=== PATIENT | male | born 1990 | race Caucasian/White ===

== ENCOUNTER → 2021-01-11 | Outpatient (CLI) | payer OTHER ==
--- NOTE | 2021-01-11 09:01 | MR ---
EXAMINATION TYPE: MR lumbar spine wo con DATE OF EXAM: 01/11/2021 COMPARISON: NONE HISTORY: Lumbar radiculopathy. Low back pain for 8 months into left buttocks for patient TECHNIQUE: Multiplanar, multisequence imaging of the lumbar spine is performed without IV contrast. FINDINGS: Sagittal images of the lumbar spine show vertebral body heights to appear satisfactory. Pro minent Schmorl node anterior superior L4 endplate. Very subtle grade 1 retrolisthesis L3 on L4, L4 an d L5, and L5 and S1 along posterior vertebral body margins. Disc desiccation L3-L4 through the L5-S1 levels. [id number] disc space narrowing at these levels. The conus medullaris is normal in pos ition and signal ending mid L1 level. Some heterogeneous Modic type III endplate changes posterior L4 -L5 level. Axial images show T12-L1, L1-L2, and L2-L3 levels all to appear within normal limits. Axial images at the L3-L4 level show posterior annular tear. Mild broad disc bulge without significan t spinal canal effacement. The bilateral neural foramina are patent. Axial images at L4-L5 level show mild/moderate facet arthropathy bilaterally. There is focal right pa racentral disc protrusion minimally effacing anterior thecal sac. Patent bilateral neural foramina. Axial images at L5-S1 level show focal left paracentral disc protrusion or spinal canal is preserved that there is some increased epidural fat at this level. There is mild facet arthropathy bilaterally. Patent bilateral neural foramina. Partial visualization of mild to moderately distended bladder. Paraspinal muscle bulk is maintained. IMPRESSION: Multilevel spondylolisthesis and degenerative changes in the mid to lower lumbar spine as detailed above.
== END | disposition home or self-care (01) ==
LOC: RADMRIMAIN 08:01
PROVIDERS: ATTEND Family Medicine
DX: M43.16 Spondylolisthesis, lumbar region (principal); M54.16 Radiculopathy, lumbar region
CPT/HCPCS: 72148

== ENCOUNTER → 2021-09-28 | Outpatient (CLI) | payer OTHER ==
--- NOTE | 2021-09-28 13:42 | MR ---
EXAMINATION TYPE: MR lumbar spine wo con DATE OF EXAM: 09/28/2021 COMPARISON: 01/11/2021 HISTORY: Lower back pain with BLE radiculopathy x 1 month. TECHNIQUE: Multiplanar, multisequence images of the lumbar spine were acquired without IV contrast. Findings: The lumbar vertebral segments are normal in height and alignment and there is no fracture or subluxat ion. There is mild degenerative disease at L3-4, L4-5 and L5-S1 levels where there is loss of signal intensity and mild circumferential disc bulge. There is a mild broad-based disc protrusion at the L4- 5 disc moderate on the left mildly compromising the left lateral recess and neural foramina There is no spinal stenosis. There is moderate facet arthropathy at the L4-5 level and mild facet arthropathy at the L3-4 and L5-S 1 levels. The paraspinal soft tissues are unremarkable. Comparison to the prior study reveals no significant interval change. IMPRESSION: 1. Mild degenerative disease from L3 through S1. 2. Left lateral mild broad-based disc protrusion at the L4-5 level mildly compromising the left later al recess and neural foramina. 3. No spinal stenosis. 4. No lumbar spine fracture or malalignment. 5. Facet arthropathy from L3 through S1 as described above.
== END | disposition home or self-care (01) ==
LOC: RADMRIMAIN 12:41
PROVIDERS: ATTEND Physical Medicine & Rehabilitation
DX: M51.36 Other intervertebral disc degeneration, lumbar region (principal); M51.26 Other intervertebral disc displacement, lumbar region; M47.819 Spondylosis without myelopathy or radiculopathy, site unspecified
CPT/HCPCS: 72148

== ENCOUNTER 2022-01-09 11:08 | Emergency (ER) | payer OTHER ==
[2022-01-09 11:15] VITALS: TEMP 98.2
--- NOTE | 2022-01-09 11:26 | ED ---
Head Injury HPI - General Chief complaint: Head Injury Stated complaint: head injury Source: patient, RN notes reviewed Mode of arrival: ambulatory Limitations: no limitations - History of Present Illness Initial comments: Patient is a 31-year-old male presents the emergency room at the [facility] [place] after head trauma at work earlier today. He reports that he was hit with Gisselle back in the side of his head and afterwards he has developed a headache, occasional blurred vision that is slowly improving along with nausea without emesis. He is also slightly fatigued. He has a small laceration to the temporal region that does not require closure. There is no hematoma. He denies any loss of consciousness, focal neurological weakness, chest pain, shortness of breath, fevers or chills. He reports that his tetanus shot is up-to-date. He does not have any significant past medical history and does not take any medications on a regular basis. - Related Data Previous Rx's Medication Instructions Recorded Ondansetron Odt [Zofran Odt] 4 mg PO Q8HR PRN 7 Days #21 tab 01/09/22 Allergies/Adverse reactions: Allergies Allergy/AdvReac Type Severity Reaction Status Date / Time No Known Allergies Allergy Verified 01/09/22 11:15 Review of Systems ROS Statement: Those systems with pertinent positive or pertinent negative responses have been documented in the HPI. ROS Other: All systems not noted in ROS Statement are negative. Past Medical History History of Any Multi-Drug Resistant Organisms: None Reported Past Surgical History: Orthopedic Surgery, Tonsillectomy Past Psychological History: No Psychological Hx Reported Smoking Status: Never smoker Past Alcohol Use History: Occasional Past Drug Use History: None Reported General Exam Limitations: no limitations General appearance: alert, in no apparent distress Head exam: Present: normocephalic Expanded Head exam: Present: laceration (small laceration left temopral region, minimal depth without drainage or eccyhmosis) Eye exam: Present: normal appearance, PERRL, EOMI. Absent: scleral icterus, conjunctival injection, nystagmus, periorbital swelling ENT exam: Present: normal exam, mucous membranes moist Neck exam: Present: normal inspection. Absent: tenderness, meningismus, lymph adenopathy Respiratory exam: Present: normal lung sounds bilaterally. Absent: respiratory distress, wheezes, rales, rhonchi, stridor Cardiovascular Exam: Present: regular rate, normal rhythm, normal heart sounds. Absent: systolic murmur, diastolic murmur, rubs, gallop, clicks GI/Abdominal exam: Present: soft, normal bowel sounds. Absent: distended, tenderness, guarding, rebound, rigid Extremities exam: Present: normal inspection, full ROM, normal capillary refill. 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 He denies any loss of consciousness or focal neurological deficits. Will check computed tomography scan due to concussive symptoms. No indication for laceration closure. No indication for laboratory studies. Tetanus up-to-date. No concern for large wound contaminated or need for antibiotics. Will give Zofran for nausea and monitor symptoms. Nausea improved with Zofran. Headache persists. IM Dilaudid given. CT of the brain showed no acute intracranial hemorrhage, mass effect or midline shift is seen however there is a slight increase in density of the basilar tip that could be artifact but recommend CTA of [place]. CTA [place] completed after BMP showed normal renal function. CT a [place] shows no large vessel intracranial arterial occlusions, significant stenosis or aneurysm changes. Headache improved somewhat with IV Dilaudid. Patient agreeable for discharge home with concussive monitoring. Will give Tylenol 3 starter pack for headaches and Zofran to utilize as needed for nausea. Return parameters to the emergency room reviewed. Case discussed with Dr. Velazco. - Lab Data Result diagrams: 01/09/22 12:54 Lab Results 01/09/22 Range/Units 12:54 Sodium 142 (137-145) mmol/L Potassium 4.4 (3.5-5.1) mmol/L Chloride 103 (98-107) mmol/L Carbon Dioxide 26 (22-30) mmol/L Anion Gap 13 mmol/L BUN 13 (9-20) mg/dL Creatinine 0.88 (0.66-1.25) mg/dL Est GFR (CKD-EPI)AfAm >90 (>60 ml/min/1.73 sqM) Est GFR (CKD-EPI)NonAf >90 (>60 ml/min/1.73 sqM) Glucose 99 (74-99) mg/dL Calcium 9.4 (8.4-10.2) mg/dL - Radiology Data Radiology results: report reviewed, image reviewed CT brain without contrast showed no acute intracranial hemorrhage, mass or shift. Slight increased density of the basilar tip likely artifact. Recommended CT angiogram of [place] CT angios [place] impression no large vessel intracranial arterial occlusion, significant stenosis or aneurysm changes seen. Disposition Clinical Impression: Concussion without loss of consciousness Disposition: HOME SELF-CARE Condition: Stable Instructions (If sedation given, give patient instructions): Concussion (ED) Additional Instructions: Please utilize Tylenol 3 starter pack for headaches as needed. Please utilize Zofran prescription for nausea as needed. Will keep off work until Thursday January 13, 2022 due to concussive symptoms. Please keep laceration clean and dry. Please return to the Emergency Department if symptoms worsen or any other concerns. Prescriptions: Ondansetron Odt [Zofran Odt] 4 mg PO Q8HR PRN 7 Days #21 tab PRN Reason: Nausea Is patient prescribed a controlled substance at d/c from ED?: No Referrals: Ria Ashraf DO [Primary Care Provider] - 1-2 days Time of Disposition: 15:06
[2022-01-09] MEDS ORDERED: ONDANSETRON 4 MG/2 ML VIAL IVP STA (11:40)
[2022-01-09] MEDS ORDERED: ONDANSETRON ODT 4 MG TAB PO STA (11:48)
--- NOTE | 2022-01-09 12:31 | CT ---
EXAMINATION TYPE: CT brain wo con DATE OF EXAM: 01/09/2022 COMPARISON: None HISTORY: Headache after head injury with blurred vision CT DLP: 1102.4 mGycm. Automated Exposure Control for Dose Reduction was Utilized. TECHNIQUE: CT scan of the head is performed without contrast. FINDINGS: There is no acute intracranial hemorrhage, mass effect, or midline shift identified. The ventricles and sulci are within normal limits in size. The globes are intact and the visualized sin uses are clear. Slight increased density in the basilar tip. Could be artifactual. IMPRESSION: No acute intracranial hemorrhage, mass effect, or midline shift is seen. Recommend CTA [place].
[2022-01-09] MEDS ORDERED: MORPHINE SULFATE 2 MG/ML SYRINGE IVP STA (12:44)
[2022-01-09 13:23] LABS: African American GFR (CKD) >90 (>60 ml/min/1.73 sqM); Anion Gap 13 mmol/L; Blood Urea Nitrogen 13 mg/dL (9-20); Calcium 9.4 mg/dL (8.4-10.2); Carbon Dioxide 26 mmol/L (22-30); Chloride 103 mmol/L (98-107); Glucose 99 mg/dL (74-99); Non-African American GFR(CKD) >90 (>60 ml/min/1.73 sqM); Potassium 4.4 mmol/L (3.5-5.1); Sodium 142 mmol/L (137-145)
--- NOTE | 2022-01-09 14:36 | CT ---
EXAMINATION TYPE: CT angio COW [place] DATE OF EXAM: 01/09/2022 COMPARISON: Same day HISTORY: 31-year-old male Headache after head injury with blurred vision TECHNIQUE: Contiguous axial scanning of the head performed with IV Contrast, patient injected with 10 0 ML mL of Isovue 370. Delayed coronal/sagittal MIP reconstructions performed. 3-D reconstructions ge nerated on a dedicated independent workstation. CT DLP: 2604.8 mGycm Automated exposure control for dose reduction was used. FINDINGS: Prominent venous contamination is noted. Alignment for this limitation, the vertebral and basilar art eries as well as the remainder of the posterior circulation appear patent. The dural venous sinuses are patent. The internal carotid arteries and remainder of the anterior circulation is patent. No aneurysmal change is seen. IMPRESSION: NO LARGE VESSEL INTRACRANIAL ARTERIAL OCCLUSION, SIGNIFICANT STENOSIS, OR ANEURYSMAL CHANGE IS SEEN.
[2022-01-09] MEDS ORDERED: ACET/COD 300 MG/30 MG STARTER PACK 6 TAB BTL PO STA (15:02)
[2022-01-09 15:18] VITALS: BP 123/80; PULSE 63; RESP 18
== END 2022-01-09 15:18 | disposition home or self-care (01) ==
LOC: EC 11:08
DX: S06.0X0A Concussion without loss of consciousness, initial encounter (principal); W22.8XXA Striking against or struck by other objects, initial encounter; Y92.69 Other specified industrial and construction area as the place of occurrence of the external cause
CPT/HCPCS: 36415; 80048; 70496; 70450; 99284; 96374; J2270; Q9967

== ENCOUNTER → 2024-09-05 | Outpatient (CLI) | payer OTHER ==
[2024-09-05 18:46] LABS: HCT 47.5 % (39.6-50.0); HGB 15.6 g/dL (13.0-17.0); MCH 28.8 pg (27.0-32.0); MCHC 32.8 g/dL (32.0-37.0); MCV 87.8 FL (80.0-97.0); Mean Platelet Volume 11.1 FL (9.5-12.2); NRBC Per 100 WBC 0 X 10*3/uL (0.00-0.01); Platelet Count 265 X 10*3/uL (140-440); RBC 5.41 X 10*6/uL (4.40-5.60); RDW 12.9 % (11.5-14.5); WBC 9.77 X 10*3/uL (4.50-10.00)
[2024-09-05 19:20] LABS: Chol/HDL Ratio 6.65 Ratio; LDL Cholesterol,Calculated 92.6 mg/dL (0.0-131.0)
[2024-09-05 19:26] LABS: ALT 22 U/L (10-49); AST 24 U/L (14-35); Albumin 4.5 g/dL (3.8-4.9); Alkaline Phosphatase 89 U/L (41-126); BUN/Creat Ratio 9.45 Ratio (12.00-20.00); Blood Urea Nitrogen 10.4 mg/dL (9.0-27.0); Calcium 9.2 mg/dL (8.7-10.3); Carbon Dioxide 23.4 mmol/L (21.6-31.8); Chloride 106 mmol/L (96-109); Globulin 2.5 g/dL (1.6-3.3); Glucose 103 mg/dL (70-110); Potassium 4.5 mmol/L (3.5-5.5); Sodium 144 mmol/L (135-145); Total Bilirubin 1.6 mg/dL (0.3-1.2)
== END | disposition home or self-care (01) ==
LOC: LABWHC1 16:25
PROVIDERS: ATTEND Family Medicine
DX: E11.9 Type 2 diabetes mellitus without complications (principal); E78.5 Hyperlipidemia, unspecified; E66.01 Morbid (severe) obesity due to excess calories
CPT/HCPCS: 36415; 80053; 80061; 83036; 84443; 85027

== ENCOUNTER → 2024-11-17 | Outpatient (CLI) | payer OTHER ==
[2024-11-17 20:12] LABS: HCT 46.6 % (39.6-50.0); HGB 15.3 g/dL (13.0-17.0); MCH 28.4 pg (27.0-32.0); MCHC 32.8 g/dL (32.0-37.0); MCV 86.5 FL (80.0-97.0); Mean Platelet Volume 11.5 FL (9.5-12.2); NRBC Per 100 WBC 0 X 10*3/uL (0.00-0.01); Platelet Count 289 X 10*3/uL (140-440); RBC 5.39 X 10*6/uL (4.40-5.60); RDW 13.2 % (11.5-14.5); WBC 10.32 X 10*3/uL (4.50-10.00)
[2024-11-17 22:04] LABS: ALT 15 U/L (10-49); AST 15 U/L (14-35); Albumin 4.6 g/dL (3.8-4.9); Alkaline Phosphatase 92 U/L (41-126); Blood Urea Nitrogen 13.1 mg/dL (9.0-27.0); Calcium 9.2 mg/dL (8.7-10.3); Carbon Dioxide 25.2 mmol/L (21.6-31.8); Chloride 106 mmol/L (96-109); Chol/HDL Ratio 6.67 Ratio; Globulin 2.3 g/dL (1.6-3.3); Glucose 96 mg/dL (70-110); LDL Cholesterol,Calculated 114.4 mg/dL (0.0-131.0); Potassium 4.4 mmol/L (3.5-5.5); Sodium 142 mmol/L (135-145); Total Bilirubin 1.5 mg/dL (0.3-1.2); Total Protein 6.9 g/dL (6.2-8.2)
== END | disposition home or self-care (01) ==
LOC: LABWHC1 16:22
PROVIDERS: ATTEND Family Medicine
DX: E11.65 Type 2 diabetes mellitus with hyperglycemia (principal); E78.5 Hyperlipidemia, unspecified
CPT/HCPCS: 36415; 80053; 80061; 83036; 84443; 85027